=== PATIENT | female | born 1955 | race Two or more races ===

== ENCOUNTER 2018-07-07 10:52 | Outpatient (CLI) | payer OTHER | END 2018-07-07 14:39 | disposition home or self-care (01) | LOC: NUCLEAR 10:52 | DX: M12.9 Arthropathy, unspecified (principal); M19.90 Unspecified osteoarthritis, unspecified site; M81.0 Age-related osteoporosis without current pathological fracture | CPT/HCPCS: 78315; A9503; 77080 ==

== ENCOUNTER 2018-07-07 14:41 | Outpatient (CLI) | payer OTHER | END 2018-07-07 14:49 | disposition home or self-care (01) | LOC: MAMO-SONO 14:41 | DX: Z12.31 Encounter for screening mammogram for malignant neoplasm of breast (principal); N63.10 Unspecified lump in the right breast, unspecified quadrant; N63.20 Unspecified lump in the left breast, unspecified quadrant; N60.11 Diffuse cystic mastopathy of right breast; N60.12 Diffuse cystic mastopathy of left breast ==